=== PATIENT | female | born 1980 | race Caucasian/White ===

== ENCOUNTER 2017-04-30 16:47 | Emergency (ER) | payer MEDICARE, MEDICAID ==
[~2017-04-30 16:47] MED LIST: ACET-1748 PO; ADDERALL; ARIP2TAB9 PO; AUG875 PO; BUTA1CAP4 PO; BUTA1TAB PO; CAFFERGOT; CEP500 PO; CLI150 PO; CYCL10TA29 PO; DICY-42 PO; FAM20 PO; HYD2 PO; HYDR-3078 PO; HYDR-4309 PO; HYDR2TAB74 PO; HYDR4TAB75 PO; HYDR50CA47 PO; IBU600 PO; IBU800 PO; LAMOT150PT GT; LAMOT150PT PO; LOR5/325 PO; LORA-629 PO; LORA10TA2 PO; MET1I IV; METH-271 PO; METH-542 PO; METH4TAB66 PO; METHO500 PO; METO-259 PO; MODA100T5 PO; MON10 PO; MOXOD OS; NAP500; ONDA4TAB PO; OXYC-865 PO; PER PO; QUE100 PO; SUMA100T32 PO; SUMA100T33 PO; TAM4 PO; TIZA4CAP6 PO; TOBDOO OS; TOP100 PO; TRA50 PO; VER100 PO; VER40 PO; [UNRECOGNIZED DRUG - CODE] OS; [UNRECOGNIZED DRUG - CODE] PO; dex60pt PO
--- NOTE | 2017-04-30 17:07 | ER Report ---
History and Physical Time Seen By MD: 17:07 Hx. of Stated Complaint: PATIENT HAS HAD A MIGRANE FOR THE LAST DAY AND A HALF. SHE REPORTS THAT SHE IS OUT OF HER IMITREX AND HAS NO REFILS HPI/ROS CHIEF COMPLAINT: Migraine headache HISTORY OF PRESENT ILLNESS: This is a 36-year-old female who presents the emergency department for atypical migraine. Patient states that she ran out of her Imitrex and is requesting an Imitrex refill. Patient is not requesting any other medications at this time. Patient denies any changes in her typical migraine headache she does have some mild nausea but she states that she doesn' t need anything for this she has medications at home. Patient denies aches or chills, no chest pain or shortness of breath. REVIEW OF SYSTEMS: Respiratory: No cough, no dyspnea. Cardiovascular: No chest pain, no palpitations. Gastrointestinal: No vomiting, no abdominal pain. Musculoskeletal: No back pain. Neurological: As above. Allergies: Coded Allergies: gabapentin (Verified Allergy, Severe, SWELLING, 11/15/16) sumatriptan (Verified Allergy, Severe, HEART PALPITAIONS, SOB, 01/01/17) PT STATES CAN'T DO THE SHOT, SHE CAN ONLY TAKE A TABLET OF THE IMITREX tramadol (Verified Allergy, Severe, SWELLING, 11/15/16) Sulfa (Sulfonamide Antibiotics) (Verified Allergy, Intermediate, ITCHING, RASH, 11/15/16) doxycycline (Verified Allergy, Intermediate, ITHCHING, RASH, 11/15/16) fish derived (Verified Allergy, Unknown, 11/15/16) Home Meds Active Scripts Sumatriptan Succinate (SUMATRIPTAN SUCCINATE) 100 Mg Tablet, 100 MG PO ONCE, #5 TAB Take one 100mg tablet at the onset of your migraine, If no relief in 2 hours may repeat. Follow up with your primary care provider for refil. Prov:MORRIS HOLLAND GUEST RELATIONS EXECUTIVE-BC 04/30/17 Sumatriptan Succinate (IMITREX) 100 Mg Tablet, 100 MG PO ONCE Y for prn, #9 TAB Prov:NIRMAL HARTLEYC 01/01/17 Reported Medications Sumatriptan Succinate (SUMATRIPTAN SUCCINATE) 100 Mg Tablet, 100 MG PO Q2H Y for MIGRAINE 01/01/17 Lamotrigine (LAMICTAL) 150 Mg Tablet, 300 MG PO QHS 05/21/16 Loratadine (LORATADINE) 10 Mg Tablet, 10 MG PO QDAY 01/17/16 Verapamil Hcl (Isoptin) 40 Mg Tab, 40 MG PO BID, 0 Refills 03/25/11 Montelukast Sodium (Singulair) 10 Mg Tab, 10 MG PO QDAY, 0 Refills 03/25/11 Past Medical/Surgical History Chin has a past medical and surgical history of migraine headaches, cardiomyopathy, asthma, pneumonia, IBS, Gilbert syndrome, kidney stones, urinary tract infections, wears glasses, bipolar, anxiety, depression, suicide attempt, tonsillectomy. Reviewed Nurses Notes: Yes Hx Smoking: Yes Hx Substance Use Disorder: No Hx Alcohol Use: No Constitutional Vital Sign - Last 24 Hours 04/30/17 04/30/17 16:52 17:25 Temp 97.9 Pulse 80 85 Resp 20 16 B/P (MAP) 110/87 114/75 (88) Pulse Ox 98 95 O2 Delivery Room Air Room Air Physical Exam General Appearance: The patient is alert, has no immediate need for airway protection and no current signs of toxicity. Eyes: Pupils equal and round no injection. Respiratory: Chest is non tender, lungs are clear to auscultation. Cardiac: regular rate and rhythm. Gastrointestinal: Abdomen is soft and non tender, no masses, bowel sounds normal. Musculoskeletal: Neck: Neck is supple and non tender. Extremities have full range of motion and are non tender. Skin: No rashes or lesions. Neurological: Alert and oriented 4. Moving all extremities. Following all commands. No focal neuro deficits. EOMs intact. DIFFERENTIAL DIAGNOSIS: After history and physical exam differential diagnosis was considered for migraine headache. Medical Decision Making ED Course/Re-evaluation ED Course The patient was admitted to room. A history of his "obtained. Patient states this is a typical migraine headache for her she did run out of her medications and requesting a dose of sumatriptan in the emergency department as well as a prescription. Patient denies aches or chills, no other acute findings this is a typical migraine progression for her. She states that she just forgot to have her medication refilled and realized when she took her medications yesterday she ran out. The patient was given 100 mg of sumatriptan in the emergency department 2 one for here one for home. The patient was also given a prescription for sumatriptan. Patient was told that she must follow up with her primary care provider for any other medication refills. Was in agreement with this plan of care had no questions and was discharged home. Decision to Disposition Date: Apr 30, 2017 Decision to Disposition Time: 17:20 Depart Departure Latest Vital Signs Vital Signs Date Time Temp Pulse Resp B/P (MAP) Pulse Ox O2 Delivery O2 Flow Rate FiO2 04/30/17 17:25 85 16 114/75 (88) 95 Room Air 04/30/17 16:52 97.9 Impression: Primary Impression: Migraine headache Condition: Improved Disposition: HOME OR SELF-CARE Referrals: MARLEEN JIN DO (PCP) New Scripts Sumatriptan Succinate (SUMATRIPTAN SUCCINATE) 100 Mg Tablet 100 MG PO ONCE, #5 TAB Take one 100mg tablet at the onset of your migraine, If no relief in 2 hours may repeat. Follow up with your primary care provider for refil. Prov: MORRIS HOLLANDP-BC 04/30/17 Patient Instructions: Migraine Headache (ED) Additional Instructions: Drink plenty of fluids. Get plenty of rest. Follow-up with your primary care provider for a medication refill. Take the medications as directed. Return to the emergency department for any other concerns or worsening symptoms. Problem Qualifiers Primary Impression: Migraine headache Migraine type: chronic without aura Status migrainosus presence: without status migrainosus Intractability: not intractable Qualified Codes: G43.709 - Chronic migraine without aura, not intractable, without status migrainosus MORRIS HOLLAND GUEST RELATIONS EXECUTIVE-BC Apr 30, 2017 17:07
[2017-04-30] MEDS ORDERED: SUMAtriptan SUCC 25MG TAB PO ONE ×2 (17:15→18:25)
[2017-04-30] MEDS ORDERED: SUMA100T33 PO (17:19)
[2017-04-30 17:25] VITALS: BP 114/75
== END 2017-04-30 17:32 | disposition home or self-care (01) ==
LOC: ER 17:15
DX: G43.709 Chronic migraine without aura, not intractable, without status migrainosus (principal)
CPT/HCPCS: 99282; A9270

== ENCOUNTER 2018-02-04 04:00 | Emergency (ER) | payer MEDICARE, MEDICAID ==
[~2018-02-04 04:00] MED LIST changes: -HYDR-4309 PO; +HYDR-653 PO
[2018-02-04 04:05] VITALS: BP 140/82
--- NOTE | 2018-02-04 04:06 | ER Report ---
History and Physical Time Seen By MD: 04:04 HPI/ROS CHIEF COMPLAINT: Bilateral infected ingrown toenails HISTORY OF PRESENT ILLNESS: 37 year-old female presents ambulatory to the ER complaining of bilateral toenail infection. Patient notes he's been some drainage from the right toe for a week. And the left toe for one day as fever, chills or body aches. She denies red streaks up her legs. REVIEW OF SYSTEMS: Respiratory: No cough, no dyspnea. Cardiovascular: No chest pain, no palpitations. Gastrointestinal: No vomiting, no abdominal pain. Musculoskeletal: No back pain. Allergies: Coded Allergies: gabapentin (Verified Allergy, Severe, SWELLING, 02/04/18) sumatriptan (Verified Allergy, Severe, HEART PALPITAIONS, SOB, 02/04/18) PT STATES CAN'T DO THE SHOT, SHE CAN ONLY TAKE A TABLET OF THE IMITREX tramadol (Verified Allergy, Severe, SWELLING, 02/04/18) Sulfa (Sulfonamide Antibiotics) (Verified Allergy, Intermediate, ITCHING, RASH, 02/04/18) doxycycline (Verified Allergy, Intermediate, ITHCHING, RASH, 02/04/18) fish derived (Verified Allergy, Unknown, 02/04/18) Home Meds Active Scripts Cephalexin 500 Mg Tab (KEFLEX 500 MG TAB) 500 Mg Tablet, 500 MG PO TID for infection, #30 TAB Prov:SHERIN BANKS DO 02/04/18 Sumatriptan Succinate (SUMATRIPTAN SUCCINATE) 100 Mg Tablet, 100 MG PO ONCE, #5 TAB Take one 100mg tablet at the onset of your migraine, If no relief in 2 hours may repeat. Follow up with your primary care provider for refil. Prov:MORRIS HOLLAND POWER HOUSE ENGINEER-BC 04/30/17 Sumatriptan Succinate (IMITREX) 100 Mg Tablet, 100 MG PO ONCE PRN for prn, #9 TAB Prov:NIRMAL HARTLEY PA-C 01/01/17 Reported Medications Sumatriptan Succinate (SUMATRIPTAN SUCCINATE) 100 Mg Tablet, 100 MG PO Q2H PRN for MIGRAINE 01/01/17 Lamotrigine (LAMICTAL) 150 Mg Tablet, 300 MG PO QHS 05/21/16 Loratadine (LORATADINE) 10 Mg Tablet, 10 MG PO QDAY 01/17/16 Verapamil Hcl (Isoptin) 40 Mg Tab, 40 MG PO BID, 0 Refills 03/25/11 Montelukast Sodium (Singulair) 10 Mg Tab, 10 MG PO QDAY, 0 Refills 03/25/11 Reviewed Nurses Notes: Yes Old Medical Records Reviewed: Yes Hx Smoking: Yes Hx Substance Use Disorder: No Hx Alcohol Use: No Constitutional Vital Sign - Last 24 Hours 02/04/18 04:05 Temp 98.1 Pulse 81 Resp 14 B/P (MAP) 140/82 Pulse Ox 95 O2 Delivery Room Air Physical Exam General appearance: Alert no distress. Respiratory: Chest is non tender, lungs are clear to auscultation. Cardiac: Regular rate and rhythm Extremities: Examination of the bilateral feet shows ingrown toenails bilaterally. There is some erythema of the left toe. There is tenderness on palpation. DIFFERENTIAL DIAGNOSIS: After history and physical exam differential diagnosis was considered for ingrown toenails, infected ingrown toenails, paronychia Medical Decision Making ED Course/Re-evaluation ED Course Patient was admitted to an examination room. H&P was done. The differential diagnoses was considered. On clinical examination. Patient has bilateral infected ingrown toenails. She is advised to take Keflex 500 mg 3 times daily. Patient advised to perform warm to hot soaks of her toes 3-4 times a day. She is advised to call Gen. surgery, Dr. Escobar for chest surgery on her toes to rem ove the ingrown portion. Decision to Disposition Date: Feb 04, 2018 Decision to Disposition Time: 04:15 Depart Departure Latest Vital Signs Vital Signs Date Time Temp Pulse Resp B/P (MAP) Pulse Ox O2 Delivery O2 Flow Rate FiO2 02/04/18 04:05 98.1 81 14 140/82 95 Room Air Impression: Primary Impression: Ingrown toenail of right foot with infection Additional Impression: Ingrown toenail of left foot with infection Condition: Improved Disposition: HOME OR SELF-CARE Referrals: MARLEEN JIN DO (PCP) GANESH FLORES MD New Scripts Cephalexin 500 Mg Tab (KEFLEX 500 MG TAB) 500 Mg Tablet 500 MG PO TID for infection, #30 TAB Prov: SHERIN BANKS DO 02/04/18 Patient Instructions: Ingrown Nail (ED) Additional Instructions: Perform warm to hot soaks of your toes 3-4 times per day Take ibuprofen 200 mg 3 tablets 3 times a day for pain relief Take antibiotic 3 times a day until gone All and make an appointment with general surgery to have your ingrown infected toenails removed, Dr. Ganesh Flores Problem Qualifiers SHERIN BANKS DO Feb 04, 2018 04:06
[2018-02-04] MEDS ORDERED: CEPH500T7 PO (04:17)
[2018-02-04] MEDS: CEPHALEXIN MONO 500 MG CAP PO ONE (04:29)
== END 2018-02-04 04:40 | disposition home or self-care (01) ==
LOC: ER 04:38
DX: L60.0 Ingrowing nail (principal); L03.032 Cellulitis of left toe; L03.031 Cellulitis of right toe
CPT/HCPCS: 99283; A9270

== ENCOUNTER 2018-06-06 02:26 | Emergency (ER) | payer MEDICARE, MEDICAID ==
[~2018-06-06 02:26] MED LIST changes: +CEPH500T7 PO
[2018-06-06 02:30] VITALS: BP 127/90
[2018-06-06] MEDS ORDERED: AMOX-559 PO (02:39)
--- NOTE | 2018-06-06 02:40 | ER Report ---
History and Physical Time Seen By MD: 02:32 Hx. of Stated Complaint: PATIENT REPORTS BEING BIT AND SCRATCHED BY A CAT AT 1530 HPI/ROS CHIEF COMPLAINT: Cat bite and scratch HISTORY OF PRESENT ILLNESS: This is a 38 rolled female. They encountered a cat that had a collar on it. She was petting the cat. Tried to grab the collar to look at the ID on the collar but then the cat freaked out and scratched and bit her. Some small scratches and punctures on both hands. Having some pain associated with these. Wash them with water and hydrogen peroxide. They have no way to find out anything more about the cat. This happened at about 1530 hrs. yesterday. Allergies: Coded Allergies: gabapentin (Verified Allergy, Severe, SWELLING, 06/06/18) sumatriptan (Verified Allergy, Severe, HEART PALPITAIONS, SOB, 06/06/18) PT STATES CAN'T DO THE SHOT, SHE CAN ONLY TAKE A TABLET OF THE IMITREX tramadol (Verified Allergy, Severe, SWELLING, 06/06/18) Sulfa (Sulfonamide Antibiotics) (Verified Allergy, Intermediate, ITCHING, RASH, 06/06/18) doxycycline (Verified Allergy, Intermediate, ITHCHING, RASH, 06/06/18) fish derived (Verified Allergy, Unknown, 06/06/18) Home Meds Active Scripts Amoxicillin/Pot Clav 875-125 Mg Tab (AUGMENTIN 875-125 TABLET) 1 Each Tablet, 1 TAB PO Q12H, #20 TAB 0 Refills Prov:JUANITA BLACK MD 06/06/18 Sumatriptan Succinate (IMITREX) 100 Mg Tablet, 100 MG PO ONCE PRN for prn, #9 TAB Prov:NIRMAL HARTLEY PA-C 01/01/17 Reported Medications Topiramate (TOPAMAX) 25 Mg Capben, 25 MG PO DAILY 06/06/18 Dexlansoprazole (DEXILANT) 60 Mg , 60 MG PO HS 06/06/18 Meloxicam (MELOXICAM) 15 Mg Tablet, 15 MG PO QDAY 06/06/18 Metoprolol Tartrate (METOPROLOL TARTRATE) 25 Mg Tablet, 1 TAB PO BID, TAB 06/06/18 Lamotrigine (LAMICTAL) 150 Mg Tablet, 300 MG PO QHS 05/21/16 Loratadine (LORATADINE) 10 Mg Tablet, 10 MG PO QDAY 01/17/16 Verapamil Hcl (Isoptin) 40 Mg Tab, 40 MG PO BID, 0 Refills 03/25/11 Montelukast Sodium (Singulair) 10 Mg Tab, 10 MG PO QDAY, 0 Refills 03/25/11 Discontinued Reported Medications Sumatriptan Succinate (SUMATRIPTAN SUCCINATE) 100 Mg Tablet, 100 MG PO Q2H PRN for MIGRAINE 01/01/17 Discontinued Scripts Cephalexin 500 Mg Tab (KEFLEX 500 MG TAB) 500 Mg Tablet, 500 MG PO TID for infection, #30 TAB Prov:SHERIN BANKS DO 02/04/18 Sumatriptan Succinate (SUMATRIPTAN SUCCINATE) 100 Mg Tablet, 100 MG PO ONCE, #5 TAB Take one 100mg tablet at the onset of your migraine, If no relief in 2 hours may repeat. Follow up with your primary care provider for refil. Prov:MORRIS HOLLAND NURSERY SUPERVISOR-BC 04/30/17 Reviewed Nurses Notes: Yes Hx Smoking: Yes Hx Substance Use Disorder: No Hx Alcohol Use: No Constitutional Vital Sign - Last 24 Hours 06/06/18 02:30 Temp 98.0 Pulse 93 Resp 15 B/P (MAP) 127/90 Pulse Ox 95 O2 Delivery Room Air Physical Exam A few scratches on the wrist on both arms. Has a puncture near the left first MCP joint. Mild redness in these areas. Normal motor function. Normal sensation. Normal capillary refill. Medical Decision Making ED Course/Re-evaluation ED Course Recommended using Augmentin to avoid cellulitis based on Bite and scratch. Risk is very low for rabies although not zero. Discussed rabies vaccination and immunoglobulin, and at this time the patient decided not to get these immunizations or shots of antibody that can return if she changes her mind. Decision to Disposition Date: Jun 06, 2018 Decision to Disposition Time: 02:38 Depart Departure Latest Vital Signs Vital Signs Date Time Temp Pulse Resp B/P (MAP) Pulse Ox O2 Delivery O2 Flow Rate FiO2 06/06/18 02:30 98.0 93 15 127/90 95 Room Air Impression: Primary Impression: Cat bite of hand Condition: Improved Disposition: HOME OR SELF-CARE Referrals: MARLEEN JIN DO (PCP) New Scripts Amoxicillin/Pot Clav 875-125 Mg Tab (AUGMENTIN 875-125 TABLET) 1 Each Tablet 1 TAB PO Q12H, #20 TAB 0 Refills Prov: JUANITA BLCAK MD 06/06/18 Patient Instructions: Animal Bite (ED) Additional Instructions: Wash the wounds once or twice a day with soap and water. Take the antibiotic Augmentin 875/125 twice a day for 10 days. If you change your mind about rabies vaccine and antibody injections, you can always return in the next 48--72 hours to do these. The risk of rabies in this case is considered to be low risk. Problem Qualifiers Primary Impression: Cat bite of hand Encounter type: initial encounter Laterality: unspecified laterality Qualified Codes: S61.459A - Open bite of unspecified hand, initial encounter; W55.01XA - Bitten by cat, initial encounter JUANITA BLACK MD Jun 06, 2018 02:40
[2018-06-06] MEDS ORDERED: DEXL60CA6 PO (02:45)
[2018-06-06] MEDS ORDERED: TOPI25CA13 PO (02:45)
[2018-06-06] MEDS ORDERED: METO25TA93 PO (02:45)
[2018-06-06] MEDS ORDERED: MELO-207 PO (02:45)
[2018-06-06] MEDS ORDERED: AMOX/CLAV 875 MG TAB PO ONE (02:50)
== END 2018-06-06 02:55 | disposition home or self-care (01) ==
LOC: ER 02:51
DX: S61.451A Open bite of right hand, initial encounter (principal); S61.452A Open bite of left hand, initial encounter
CPT/HCPCS: 99283; A9270

== ENCOUNTER 2018-08-27 19:06 | Emergency (ER) | payer MEDICARE, MEDICAID ==
[~2018-08-27 19:06] MED LIST changes: +AMOX-559 PO; +DEXL60CA6 PO; +MELO-207 PO; +METO25TA93 PO; +TOPI25CA13 PO
--- NOTE | 2018-08-27 19:15 | ER Report ---
History and Physical Time Seen By MD: 19:07 HPI/ROS CHIEF COMPLAINT: Rash to the anterior chest, also complaint of sinus pressure and congestion and nasal discharge for approximately 10 days HISTORY OF PRESENT ILLNESS: Patient is 38 her old female who presents to emergency department because of itchy rash to the anterior chest that began over the past 24-48 hours she was recently being treated for a "rash under her armpits" with a topical steroid cream this rash seems to have improved however she has now developed rash to the anterior chest wall. Patient also complaining of a frontal sinus pressure and headache which is regular her migraines. She also feels nasal congestion along with nasal discharge similar to prior episodes of sinusitis. Fevers or chills no neck stiffness or pain. REVIEW OF SYSTEMS: Respiratory: No cough, no dyspnea. Cardiovascular: No chest pain, no palpitations. Gastrointestinal: No vomiting, no abdominal pain. Musculoskeletal: No back pain. Allergies: Coded Allergies: gabapentin (Verified Allergy, Severe, SWELLING, 08/27/18) sumatriptan (Verified Allergy, Severe, HEART PALPITAIONS, SOB, 08/27/18) PT STATES CAN'T DO THE SHOT, SHE CAN ONLY TAKE A TABLET OF THE IMITREX tramadol (Verified Allergy, Severe, SWELLING, 08/27/18) Sulfa (Sulfonamide Antibiotics) (Verified Allergy, Intermediate, ITCHING, RASH, 08/27/18) doxycycline (Verified Allergy, Intermediate, ITHCHING, RASH, 08/27/18) fish derived (Verified Allergy, Unknown, 08/27/18) Home Meds Active Scripts Pseudoephedrine Hcl (SUDAFED 12 HOUR) 120 Mg Tablet.er, 120 MG PO Q12H for congestion, #20 TAB 0 Refills Prov:MINGO MEZA MD 08/27/18 Amoxicillin/Pot Clav 875-125 Mg Tab (AUGMENTIN 875-125 TABLET) 1 Each Tablet, 1 TAB PO Q12H for 10 Days, #20 TAB 0 Refills Prov:MINGO MEZA MD 08/27/18 Sumatriptan Succinate (IMITREX) 100 Mg Tablet, 100 MG PO ONCE PRN for prn, #9 TAB Prov:NIRMAL HARTLEY PA-C 01/01/17 Reported Medications Topiramate (TOPAMAX) 25 Mg Cap.sprink, 25 MG PO DAILY 06/06/18 Dexlansoprazole (DEXILANT) 60 Mg Mike., 60 MG PO HS 06/06/18 Meloxicam (MELOXICAM) 15 Mg Tablet, 15 MG PO QDAY 06/06/18 Metoprolol Tartrate (METOPROLOL TARTRATE) 25 Mg Tablet, 1 TAB PO BID, TAB 06/06/18 Lamotrigine (LAMICTAL) 150 Mg Tablet, 300 MG PO QHS 05/21/16 Loratadine (LORATADINE) 10 Mg Tablet, 10 MG PO QDAY 01/17/16 Verapamil Hcl (Isoptin) 40 Mg Tab, 40 MG PO BID, 0 Refills 03/25/11 Montelukast Sodium (Singulair) 10 Mg Tab, 10 MG PO QDAY, 0 Refills 03/25/11 Discontinued Scripts Amoxicillin/Pot Clav 875-125 Mg Tab (AUGMENTIN 875-125 TABLET) 1 Each Tablet, 1 TAB PO Q12H, #20 TAB 0 Refills Prov:JUANITA BLACK MD 06/06/18 Past Medical/Surgical History History of migraine headaches Hx Smoking: Yes Hx Substance Use Disorder: No Hx Alcohol Use: No Constitutional Vital Sign - Last 24 Hours 08/27/18 08/27/18 08/27/18 08/27/18 19:10 19:21 19:30 19:36 Temp 97.3 Pulse 79 80 83 Resp 16 B/P (MAP) 141/95 110/85 (93) Pulse Ox 98 96 95 O2 Delivery Room Air 08/27/18 08/27/18 08/27/18 08/27/18 19:51 20:00 20:06 20:11 Pulse 78 78 80 B/P (MAP) 120/74 (89) Pulse Ox 98 97 97 Physical Exam General Appearance: The patient is alert, has no immediate need for airway protection and no current signs of toxicity. [ ] Eyes: Pupils equal and round no injection. EARS: TMs and canals clear bilaterally OP: Pharyngeal area without erythema Respiratory: Chest is non tender, lungs are clear to auscultation. Cardiac: regular rate and rhythm [ ] Gastrointestinal: Abdomen is soft and non tender, no masses, bowel sounds normal. Musculoskeletal: Neck: Neck is supple and non tender. Extremities have full range of motion and are non tender. Skin: Patient with hives the anterior chest wall Medical Decision Making ED Course/Re-evaluation ED Course Plan at this time will be to treat the patient with IM Benadryl and also start patient on Augmentin and Sudafed for sinusitis. Decision to Disposition Date: Aug 27, 2018 Decision to Disposition Time: 20:08 Depart Departure Latest Vital Signs Vital Signs Date Time Temp Pulse Resp B/P (MAP) Pulse Ox O2 Delivery O2 Flow Rate FiO2 08/27/18 20:11 80 97 08/27/18 20:00 120/74 (89) 08/27/18 19:10 97.3 16 Room Air Impression: Primary Impression: Hives Additional Impression: Sinusitis Condition: Improved Disposition: HOME OR SELF-CARE Referrals: MARLEEN JIN DO (PCP) New Scripts Pseudoephedrine Hcl (SUDAFED 12 HOUR) 120 Mg Tablet.er 120 MG PO Q12H for congestion, #20 TAB 0 Refills Prov: MINGO MEZA MD 08/27/18 Amoxicillin/Pot Clav 875-125 Mg Tab (AUGMENTIN 875-125 TABLET) 1 Each Tablet 1 TAB PO Q12H for 10 Days, #20 TAB 0 Refills Prov: MINGO MEZA MD 08/27/18 Patient Instructions: Sinusitis (GEN), Urticaria (GEN) Additional Instructions: Imaging try to make a follow-up appointment with Dr. Mingo Vital, at the [facility] on [address] [place] [address]. [address] contact number is [phone] Problem Qualifiers Additional Impression: Sinusitis Sinusitis location: unspecified location Chronicity: unspecified Qualified Codes: J32.9 - Chronic sinusitis, unspecified MINGO MEZA MD Aug 27, 2018 19:15
[2018-08-27] MEDS ORDERED: AMOX/CLAV 875 MG TAB PO ONE (19:30)
[2018-08-27] MEDS ORDERED: PSEUDOEPHEDRINE 30 MG TAB PO ONE (19:30)
[2018-08-27] MEDS ORDERED: diphenhydrAMINE 50 MG/ML VIAL IM ONE (19:30)
[2018-08-27 20:00] VITALS: BP 120/74
[2018-08-27] MEDS ORDERED: AMOX-559 PO (20:09)
[2018-08-27] MEDS ORDERED: PSEU120T69 PO (20:09)
== END 2018-08-27 20:21 | disposition home or self-care (01) ==
LOC: ER 19:28
DX: L50.9 Urticaria, unspecified (principal); J32.9 Chronic sinusitis, unspecified
CPT/HCPCS: 96372; 99283; A9270; J1200